=== PATIENT | male | born 1985 | race Hispanic/Latino ===

== ENCOUNTER 2017-11-07 12:14 | Emergency (ER) | payer SELFPAY ==
--- NOTE | 2017-11-07 14:03 | RAD REPORT ---
EXAM DESCRIPTION: CT - Spine Lumbar Wo Con - 11/07/2017 1:41 pm CLINICAL HISTORY: Radiculopathy. Fall, trauma, pain. COMPARISON: Pelvis Wo Cont dated 11/07/2017 TECHNIQUE: Axial noncontrast CT imaging of the lumbar spine was performed with coronal and sagittal re-formatted images. All CT scans are performed using dose optimization technique as appropriate and may include automated exposure control or mA/KV adjustment according to patient size. FINDINGS: No acute lumbar spine fracture seen. No aggressive marrow pattern or malalignment. Paraspinal tissues are normal in thickness. No paraspinal abscess or hematoma seen. Intervertebral disc disease assessment is inherently limited by CT. Within these limitations, no high -grade canal stenosis suspected. IMPRESSION: Negative examination. Consider MRI follow-up for assessment of disc disease if clinically desired.
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
--- NOTE | 2017-11-07 14:14 | ER ---
Nurse's Notes [facility] Name: Haresh Grigsby Age: 32 yrs Sex: Male : 1985 Arrival Date: 11/07/2017 Time: 12:17 Bed 18 Private MD: None, None Diagnosis: Other slipping, tripping and stumbling and falls;Low back pain;Headache;Other specified injuries of head Presentation: 11/07 12:21 Presenting complaint: states: [place] speaking only, he fell on the tub and hit hj the back of his head 2 days ago, feels hematoma on the back of the head, denies LOC; since then he has been having headaches; reports nausea, reports blurry vision on the L eye; started having numbness on the L arm last night;. Transition of care: patient was not received from another setting of care. Onset of symptoms was November 07, 2017. Risk Assessment: Do you want to hurt yourself or someone else? Patient reports no desire to harm self or others. Initial Sepsis Screen: Does the patient meet any 2 criteria? No. Patient's initial sepsis screen is negative. Does the patient have a suspected source of infection? No. Patient's initial sepsis screen is negative. Care prior to arrival: None. 12:21 Method Of Arrival: Ambulatory 12:21 Acuity: JOY 4 hj Triage Assessment: 12:25 Headache History: Denies prior headaches. General: Appears in no apparent distress. hj uncomfortable, Behavior is calm, cooperative, appropriate for age. Pain: Complains of pain in head Pain currently is 7 out of 10 on a pain scale. Pain began 2-3 days ago. Also complains of nausea. Neuro: Level of Consciousness is awake, alert, obeys commands, Oriented to person, place, time, situation, Appropriate for age. Historical: - Allergies: 12:24 No Known Allergies; hj - Home Meds: 12:24 None [Active]; hj - PMHx: 12:24 None; hj - PSHx: 12:24 None; hj - Immunization history:: Adult Immunizations not immunized. - Social history:: Smoking status: Patient/guardian denies using tobacco, Patient uses alcohol, on a daily basis. - Ebola Screening: : Patient negative for fever greater than or equal to 101.5 degrees Fahrenheit, and additional compatible Ebola Virus Disease symptoms Patient denies exposure to infectious person Patient denies travel to an Ebola-affected area in the 21 days before illness onset. Screenin:24 Abuse screen: Denies threats or abuse. Denies injuries from another. Nutritional hj screening: No deficits noted. Tuberculosis screening: No symptoms or risk factors identified. Fall Risk None identified. Assessment: 12:40 General: Appears in no apparent distress. comfortable, Behavior is calm, cooperative. em Pain: Complains of pain in base of the skull and left base of the skull Pain currently is 7 out of 10 on a pain scale. Neuro: Level of Consciousness is awake, alert, obeys commands, Oriented to person, place, time, situation. Neuro: Reports blurred vision in iris of left eye Denies dizziness. Cardiovascular: Capillary refill < 3 seconds Patient's skin is warm and dry. Respiratory: Airway is patent Respiratory effort is even, unlabored, Respiratory pattern is regular, symmetrical. GI: Abdomen is flat, Reports nausea, Patient currently denies vomiting. : No signs and/or symptoms were reported regarding the genitourinary system. EENT: No signs and/or symptoms were reported regarding the EENT system. Derm: Skin is intact, Skin is pink, warm \T\ dry. Musculoskeletal: Range of motion: intact in all extremities. 12:54 Reassessment: Patient appears in no apparent distress at this time. I agree with above iw assessment by Brooks Cardenas LVN. 14:18 Reassessment: Patient appears in no apparent distress at this time. Patient and/or em family updated on plan of care and expected duration. Pain level reassessed. Patient is alert, oriented x 3, equal unlabored respirations, skin warm/dry/pink. Vital Signs: 12:26 BP 116 / 78; Pulse 62; Resp 18; Temp 97.9(TE); Pulse Ox 98% on R/A; Weight 65.77 kg; Height 5 ft. 4 in. (162.56 cm); Pain 7/10; 13:37 BP 124 / 68; Pulse 58; Resp 16; Pulse Ox 99% on R/A; em 14:24 BP 122 / 72; Pulse 60; Resp 16; Pulse Ox 98% on R/A; Pain 5/10; em 12:26 Body Mass Index 24.89 (65.77 kg, 162.56 cm) ED Course: 12:17 Patient arrived in ED. mr 12:18 None, None is Private Physician. mr 12:24 Triage completed. hj 12:25 Arm band placed on right wrist. hj 12:25 Patient has correct armband on for positive identification. hj 12:40 Bert Nguyen MD is Attending Physician. kdr 12:53 Brooks Cardenas LVN is Primary Nurse. em 13:[address] via wheelchair. cw1 13:41 Spine Lumbar Wo Con In Process Unspecified. EDMS 13:41 Pelvis Wo Cont In Process Unspecified. EDMS 13:41 CT Head C Spine In Process Unspecified. EDMS 13:41 CT completed. Patient moved back from CT. cw1 14:33 No provider procedures requiring assistance completed. Patient did not have IV access em during this emergency room visit. Administered Medications: No medications were administered Outcome: 14:13 Discharge ordered by . kdr 14:33 Discharged to home ambulatory. em 14:33 Condition: good 14:33 Discharge instructions given to patient. 14:33 Instructed on discharge instructions, follow up and referral plans. medication usage, Demonstrated understanding of instructions, follow-up care, medications, Prescriptions given X 1. 14:35 Patient left the ED. em Signatures: Dispatcher [employer] EDME Bert Nguyen MD MD kdr Rivera, Maria mr Brooks Cardenas LVN LVN em Alana Gomez, RN Sue Le cw1 Valente Woods RN RN Corrections: (The following items were deleted from the chart) 12:27 12:21 Presenting complaint: states: he fell on the tub and hit the back of his hj head 2 days ago, denies LOC; since then he has been having headaches; reports nausea, reports blurry vision on the L eye; started having numbness on the L arm last night; hj 12:27 12:26 BP 115 / 82; Pulse 62bpm; Resp 18bpm; Pulse Ox 98% RA; Temp 97.9F Temporal; 65.77 hj kg; Height 5 ft. 4 in.; BMI: 24.8; Pain 7/10; hj 12:36 12:21 Presenting complaint: states: he fell on the tub and hit the back of his hj head 2 days ago, feels hematoma on the back of the head, denies LOC; since then he has been having headaches; reports nausea, reports blurry vision on the L eye; started having numbness on the L arm last night; hj
--- NOTE | 2017-11-07 14:14 | EDPHYS ---
Physician Documentation [facility] Name: Haresh Grigsby Age: 32 yrs Sex: Male : 1985 Arrival Date: 11/07/2017 Time: 12:17 Bed 18 Private MD: None, None ED Physician Bert Nguyen HPI: 11/07 14:21 This 32 yrs old Male presents to ER via Ambulatory with complaints of kdr Headache, Numbness Of Arm. 14:21 The patient complains of pain to the right occipital area. The patient describes the kdr headache as aching, a pressure. Onset: The symptoms/episode began/occurred suddenly, 2 day(s) ago. Associated signs and symptoms: Pertinent positives: Left face/paranasal, right groin pain/tingling. Severity of symptoms: At its worst the pain was mild, in the emergency department the pain is unchanged. Headache History: Denies prior headaches. The symptoms are alleviated by nothing. the symptoms are aggravated by alcohol. The patient has not experienced similar symptoms in the past. The patient has not recently seen a physician. Historical: - Allergies: 12:24 No Known Allergies; hj - Home Meds: 12:24 None [Active]; hj - PMHx: 12:24 None; hj - PSHx: 12:24 None; hj - Immunization history:: Adult Immunizations not immunized. - Social history:: Smoking status: Patient/guardian denies using tobacco, Patient uses alcohol, on a daily basis. - Ebola Screening: : Patient negative for fever greater than or equal to 101.5 degrees Fahrenheit, and additional compatible Ebola Virus Disease symptoms Patient denies exposure to infectious person Patient denies travel to an Ebola-affected area in the 21 days before illness onset. ROS: 14:21 Constitutional: Negative for fever, chills, and weight loss, Eyes: Negative for injury, kdr pain, redness, and discharge, ENT: Negative for injury, pain, and discharge, Neck: Negative for injury, pain, and swelling, Cardiovascular: Negative for chest pain, palpitations, and edema, Respiratory: Negative for shortness of breath, cough, wheezing, and pleuritic chest pain, Abdomen/GI: Negative for abdominal pain, nausea, vomiting, diarrhea, and constipation, Back: Negative for injury and pain, : Negative for injury, bleeding, discharge, and swelling, MS/Extremity: Negative for injury and deformity, Skin: Negative for injury, rash, and discoloration, Psych: Negative for depression, anxiety, suicide ideation, homicidal ideation, and hallucinations, Allergy/Immunology: Negative for hives, rash, and allergies, Endocrine: Negative for neck swelling, polydipsia, polyuria, polyphagia, and marked weight changes, Hematologic/Lymphatic: Negative for swollen nodes, abnormal bleeding, and unusual bruising. 14:21 Neuro: Positive for Exam: 14:29 Constitutional: This is a well developed, well nourished patient who is awake, alert, kdr and in no acute distress. Head/Face: Normocephalic, atraumatic. Eyes: Pupils equal round and reactive to light, extra-ocular motions intact. Lids and lashes normal. Conjunctiva and sclera are non-icteric and not injected. Cornea within normal limits. Periorbital areas with no swelling, redness, or edema. Neck: Trachea midline, no thyromegaly or masses palpated, and no cervical lymphadenopathy. Supple, full range of motion without nuchal rigidity, or vertebral point tenderness. No Meningismus. Chest/axilla: Normal chest wall appearance and motion. Nontender with no deformity. No lesions are appreciated. Cardiovascular: Regular rate and rhythm with a normal S1 and S2. No gallops, murmurs, or rubs. Normal PMI, no JVD. No pulse deficits. Respiratory: Lungs have equal breath sounds bilaterally, clear to auscultation and percussion. No rales, rhonchi or wheezes noted. No increased work of breathing, no retractions or nasal flaring. Abdomen/GI: Soft, non-tender, with normal bowel sounds. No distension or tympany. No guarding or rebound. No evidence of tenderness throughout. Back: No spinal tenderness. No costovertebral tenderness. Full range of motion. Skin: Warm, dry with normal turgor. Normal color with no rashes, no lesions, and no evidence of cellulitis. MS/ Extremity: Pulses equal, no cyanosis. Neurovascular intact. Full, normal range of motion. Neuro: Awake and alert, GCS 15, oriented to person, place, time, and situation. Cranial nerves II-XII grossly intact. Motor strength 5/5 in all extremities. Sensory grossly intact. Cerebellar exam normal. Normal gait. Psych: Awake, alert, with orientation to person, place and time. Behavior, mood, and affect are within normal limits. Vital Signs: 12:26 BP 116 / 78; Pulse 62; Resp 18; Temp 97.9(TE); Pulse Ox 98% on R/A; Weight 65.77 kg; hj Height 5 ft. 4 in. (162.56 cm); Pain 7/10; 13:37 BP 124 / 68; Pulse 58; Resp 16; Pulse Ox 99% on R/A; em 14:24 BP 122 / 72; Pulse 60; Resp 16; Pulse Ox 98% on R/A; Pain 5/10; em 12:26 Body Mass Index 24.89 (65.77 kg, 162.56 cm) hj MDM: 14:13 Patient medically screened. kdr 14:29 Data reviewed: vital signs, nurses notes, radiologic studies. Counseling: I had a kdr detailed discussion with the patient and/or guardian regarding: the historical points, exam findings, and any diagnostic results supporting the discharge/admit diagnosis, radiology results, the need for outpatient follow up. 11/07 12:55 Order name: CT Head C Spine; Complete Time: 14:11 kdr 11/07 13:10 Order name: Spine Lumbar Wo Con; Complete Time: 14:11 EDMS 11/07 13:10 Order name: Pelvis Wo Cont; Complete Time: 14:11 EDMS Administered Medications: No medications were administered Disposition: 11/07/17 14:13 Discharged to Home. Impression: Other slipping, tripping and stumbling and falls, Low back pain, Headache, Other specified injuries of head. - Condition is Stable. - Discharge Instructions: Musculoskeletal Pain, Back Pain, Adult, [id number], Head Injury, Adult, [id number], General Headache Without Cause, [id number]. - Prescriptions for Tramadol 50 mg Oral Tablet - take 1 tablet by ORAL route every 8 hours as needed; 12 tablet. - Medication Reconciliation Form, Thank You Letter, Antibiotic Education, Prescription Opioid Use, Work release form form. - Follow up: Private Physician; When: 2 - 3 days; Reason: If symptoms return, Further diagnostic work-up, Recheck today's complaints, Continuance of care, Re-evaluation by your physician. - Problem is new. - Symptoms are unchanged. Signatures: Dispatcher [employer] EDMS Bert Nguyen MD MD kdr Brooks Cardenas, RN OR LPN RN OR LPN em Valente Woods RN RN hj Corrections: (The following items were deleted from the chart) 13:20 13:10 C Spine Wo Con ordered. [facility] 14:35 14:13 11/07/2017 14:13 Discharged to Home. Impression: Other slipping, tripping and em stumbling and falls; Low back pain; Headache; Other specified injuries of head. Condition is Stable. Forms are Medication Reconciliation Form, Thank You Letter, Antibiotic Education, Prescription Opioid Use. Follow up: Private Physician; When: 2 - 3 days; Reason: If symptoms return, Further diagnostic work-up, Recheck today's complaints, Continuance of care, Re-evaluation by your physician. Problem is new. Symptoms are unchanged. kdr
== END 2017-11-07 14:35 | disposition home or self-care (01) ==
LOC: ER 12:14
DX: S09.8XXA Other specified injuries of head, initial encounter (principal); M54.5 Low back pain; W01.0XXA Fall on same level from slipping, tripping and stumbling without subsequent striking against object, initial encounter; Y93.E1 Activity, personal bathing and showering; Y92.002 Bathroom of unspecified non-institutional (private) residence as the place of occurrence of the external cause
CPT/HCPCS: 70450; 72125; 72131; 72192; 99284